=== PATIENT | female | born 2000 | race Caucasian/White ===

== ENCOUNTER 2018-09-03 15:37 | Emergency (ER) | payer OTHER, BC, MEDICAID ==
[~2018-09-03] VITALS: Ht 162.6 cm; Wt 72.6 kg
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
[2018-09-03] MEDS ORDERED: LORazepam INJ 2 MG/ML (ATIVAN) VIAL IVP ONE (16:30)
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
[2018-09-03 18:30] VITALS: BP 119/80
== END 2018-09-03 18:34 | disposition home or self-care (01) ==
LOC: ER 15:39
DX: S00.83XA Contusion of other part of head, initial encounter (principal); S30.0XXA Contusion of lower back and pelvis, initial encounter; F39 Unspecified mood [affective] disorder; Z88.2 Allergy status to sulfonamides; Z88.6 Allergy status to analgesic agent; Z88.8 Allergy status to other drugs, medicaments and biological substances; V53.6XXA Passenger in pick-up truck or van injured in collision with car, pick-up truck or van in traffic accident, initial encounter
CPT/HCPCS: 70450; 72125; 72128; 72131; 72192; 96374